=== PATIENT | male | born 1990 ===

== ENCOUNTER → 2023-05-03 | Outpatient (CLI) | payer OTHER ==
[~2023-05-03] MED LIST: DICLOFENAC POTA50 MG PO; METHOCARBAMOL500 MG PO; NABUMETONE750 MG PO
== END | disposition home or self-care (01) ==
LOC: MRI 10:03
PROVIDERS: ATTEND General Practice
DX: M54.2 Cervicalgia (principal); G89.29 Other chronic pain
CPT/HCPCS: 72141

== ENCOUNTER 2023-08-01 09:44 | Outpatient (CLI) | payer OTHER | END 2023-08-01 09:51 | disposition home or self-care (01) | LOC: SONOGRAMA 09:44 | PROVIDERS: ATTEND Physical Medicine & Rehabilitation Pediatric Rehabilitation Medicine | DX: M72.2 Plantar fascial fibromatosis (principal) ==

== ENCOUNTER 2023-10-12 16:35 | Emergency (ER) | payer OTHER ==
[~2023-10-12] VITALS: Ht 162.6 cm; Wt 79.4 kg
[2023-10-12] MEDS ORDERED: cloNIDine HCL 0.2 MG TABLET PO ONE (20:00)
[2023-10-12 20:33] LABS: HEMATOCRIT 39.4 % (39.0-48.0); HEMOGLOBIN 13.8 g/dL (13-16.00); MEAN CELL VOLUME 89.3 fL (80.0-100.00); MEAN CORPUSCULAR HEMOGLOBIN 31.2 pg (27.00-32.0); MEAN CORPUSCULAR HGB CONC 34.9 g/dl (32.0-36.0); PLATELET COUNT 314 K/uL (150-450); RED BLOOD COUNT 4.41 M/uL (4.00-6.00); RED CELL DISTRIBUTION WIDTH 12.1 % (11.5-14.5)
[2023-10-12 20:57] LABS: ALBUMIN 4.2 gm/dL (3.4-5.0); BILIRUBIN TOTAL 0.67 mg/dL (0.3-1.2); CALCIUM 9.6 mg/dL (8.5-10.1); CREATININE SERUM 0.83 mg/dL (0.70-1.30); GFR 106.7; GLOBULINA 3.3 G/DL (2.4-3.5); POTASSIUM 3.93 mEq/L (3.5-5.1); TOTAL PROTEIN 7.5 gm/dL (6.4-8.2)
== END 2023-10-12 23:02 | disposition home or self-care (01) ==
LOC: ER 16:35
PROVIDERS: Emergency Medicine
DX: R53.81 Other malaise (principal); I10 Essential (primary) hypertension

== ENCOUNTER 2023-10-20 07:08 | Outpatient (CLI) | payer OTHER | END 2023-10-20 07:16 | disposition home or self-care (01) | LOC: SONOGRAMA 07:08 | PROVIDERS: ATTEND General Practice | DX: R10.9 Unspecified abdominal pain (principal); R94.5 Abnormal results of liver function studies; R00.2 Palpitations; E03.9 Hypothyroidism, unspecified ==